=== PATIENT | female | born 1965 | race Caucasian/White ===

== ENCOUNTER 2018-11-15 22:02 | Emergency (ER) | payer OTHER ==
[2018-11-15 22:09] VITALS: BP 118/64; PULSE 50; TEMP 97.6; BMI 18.3
[2018-11-15] MEDS ORDERED: LIDOCAINE 2.5%/PRILOCAINE 2.5% (5 Gram/TUBE) TP ONE (22:57)
[2018-11-15] MEDS ORDERED: DOXYCYCLINE HYCLATE 100 MG CAPSULE PO ONE ×2 (23:04→23:05)
--- NOTE | 2018-11-16 03:29 | PDOC ---
Documentation entered by Saravanan Chu SCRIBE, acting as scribe for Joan Owens MD. Joan Owens MD: This documentation has been prepared by the Kimberley holguin Xhesika, SCRIBE, under my direction and personally reviewed by me in its entirety. I confirm that the documentation accurately reflects all work, treatment, procedures, and medical decision making performed by me. History of Present Illness - General Chief Complaint: Foreign Body (FB) Stated Complaint: TICK IMBEDDED IN SCALP Time Seen by Provider: 11/15/18 22:10 History Source: Patient Exam Limitations: No Limitations - History of Present Illness Initial Comments: 11/15/18 23:40 The patient is a 53 year old female, with no significant past medical history of who presents to the emergency department with a foreign body since yesterday. The patient states she was gardening with her head down when the tick embedded in her scalp. The patient states she did not feel the tick on her scalp yesterday, however, when she took a shower today she felt a bump that felt like a pimple on her lower scalp. The patient notes she went running yesterday, however, it was on a track and not in the [place]. The patient notes she has a dog, however, the dog is using anti-tick medication. The patient states she did not note any other insects or rash. The patient denies any previous history of foreign bodies. The patient denies chest pain, shortness of breath, headache. The patient denies fever, chills, nausea, diarrhea, vomit, or constipation. The patient denies dysuria or hematuria. Allergies:NKDA Past surgical history:None reported Social history: None reported Past History - Past Medical History Allergies/Adverse Reactions: Allergies Allergy/AdvReac Type Severity Reaction Status Date / Time No Known Allergies Allergy Verified 11/15/18 22:04 Home Medications: Ambulatory Orders NK [No Known Home Medication] 11/15/18 COPD: No Other medical history: DENIES - Suicide/Smoking/Psychosocial Hx Smoking History: Never smoked Have you smoked in the past 12 months: No Information on smoking cessation initiated: No Hx Alcohol Use: Yes (OCCAS.) Drug/Substance Use Hx: No Review of Systems - Review of Systems Able to Perform ROS?: Yes Comments:: 11/15/18 23:42 GENERAL/CONSTITUTIONAL: No fever or chills. No weakness. HEAD, EYES, EARS, NOSE AND THROAT: (+) foreign body in scalp.No change in vision. No ear pain or discharge. No sore throat. CARDIOVASCULAR: No chest pain or shortness of breath. RESPIRATORY: No cough, wheezing, or hemoptysis. GASTROINTESTINAL: No nausea, vomiting, diarrhea or constipation. GENITOURINARY: No dysuria, frequency, or change in urination. MUSCULOSKELETAL: No joint or muscle swelling or pain. No neck or back pain. SKIN: No rash NEUROLOGIC: No headache, vertigo, loss of consciousness, or change in strength/ sensation. ENDOCRINE: No increased thirst. No abnormal weight change. HEMATOLOGIC/LYMPHATIC: No anemia, easy bleeding, or history of blood clots. ALLERGIC/IMMUNOLOGIC: No hives or skin allergy. *Physical Exam - Vital Signs Last Vital Signs Temp Pulse Resp BP Pulse Ox 97.6 F 50 L 16 118/64 98 11/15/18 22:05 11/15/18 22:05 11/15/18 22:05 11/15/18 22:05 11/15/18 22:05 - Physical Exam Comments: 11/15/18 23:43 GENERAL: Awake, alert, and fully oriented, in no acute distress HEAD: (+).5cm by .5cm erythematous, slightly elevated, slightly tender R occipital scalp central with black foreign body insect. No drainage or bleeding noted. Area is nonfluctuant. No other abnormalities of scalp seen. No signs of trauma EYES: PERRLA, EOMI, sclera anicteric, conjunctiva clear ENT: Auricles normal inspection, hearing grossly normal, nares patent, oropharynx clear without exudates. Moist mucosa NECK: Normal ROM, supple, no lymphadenopathy, JVD, or masses LUNGS: Breath sounds equal, clear to auscultation bilaterally. No wheezes, and no crackles HEART: Regular rate and rhythm, normal S1 and S2, no murmurs, rubs or gallops ABDOMEN: Soft, nontender, normoactive bowel sounds. No guarding, no rebound. No masses EXTREMITIES: Normal range of motion, no edema. No clubbing or cyanosis. No cords, erythema, or tenderness NEUROLOGICAL: Cranial nerves II through XII grossly intact. Normal speech, normal gait SKIN: Warm, Dry, normal turgor, no rashes or lesions noted. ED Treatment Course - Medications Given in the ED: ED Medications Discontinued Medications Generic Name Dose Route Start Last Admin Trade Name Rivera PRN Reason Stop Dose Admin Doxycycline Hyclate 200 mg 11/15/18 23:04 11/15/18 23:07 Vibramycin - PO 11/15/18 23:05 200 mg ONCE ONE Administration Progress Note - Progress Note Progress Note: EMLA was applied to the embedded tick on the right occipital scalp for approximately 20 minutes prior to the procedure. Area was cleansed using chlorhexidine/ethanol solution. Using a fine hemostat clamped, insect was grasped and gentle traction applied. The majority of the insect was removed. Very small fragments of the insect were sharply debrided using #11 blade. No further foreign body seen in wound. Direct pressure applied to wound for hemostasis. Wound then covered with bacitracin ointment. Patient tolerated procedure well. Patient given doxycycline 200 milligrams prophylaxis for Lyme disease. Patient was instructed to closely watch for development of rash or fever/malaise /myalgias for the next several weeks. If any of these occur, she should see her doctor or return to the ER. *DC/Admit/Observation/Transfer Diagnosis at time of Disposition: Embedded tick of occipital region of scalp Qualifiers: Encounter type: initial encounter Qualified Code(s): S00.05XA - Superficial foreign body of scalp, initial encounter; Z18.39 - Other retained organic fragments - Discharge Dispostion Disposition: HOME Condition at time of disposition: Stable - Referrals - Patient Instructions Printed Discharge Instructions: Protect Yourself from Tickborne Illnesses Additional Instructions: Bacitracin/Neosporin ointment daily to wound for the next 5 days Avoid washing hair tomorrow; after that, can gently wash hair as needed Return to ER or see your doctor if you notice skin rash or develop fever/chills , body aches, weakness anytime in the next 3-4 weeks - Post Discharge Activity
== END 2018-11-15 23:37 | disposition home or self-care (01) ==
LOC: FER 22:02
DX: S01.04XA Puncture wound with foreign body of scalp, initial encounter (principal); T63.891A Toxic effect of contact with other venomous animals, accidental (unintentional), initial encounter; Y92.89 Other specified places as the place of occurrence of the external cause
CPT/HCPCS: 99281-25